=== PATIENT | male | born 1995 | race African-American/Black ===

== ENCOUNTER 2022-09-20 10:59 | Emergency (ER) | payer OTHER, SELFPAY ==
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
[2022-09-20 10:58] VITALS: BP 154/75; PULSE 100; RESP 18; TEMP 36.4; O2SAT 98
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
[2022-09-20 14:27] VITALS: BP 143/96; PULSE 93; RESP 18; O2SAT 100
== END 2022-09-20 15:56 | disposition home or self-care (01) ==
PROVIDERS: Emergency Provider Emergency Medicine
DX: R51.9 Headache, unspecified (principal); V43.52XA Car driver injured in collision with other type car in traffic accident, initial encounter
CPT/HCPCS: 70450; 73562; 96365; 99284; J0131